=== PATIENT | female | born 1960 | race Caucasian/White ===

== ENCOUNTER 2017-01-29 13:42 | Emergency (ER) | payer OTHER ==
--- NOTE | 2017-01-29 14:06 | CPEKG ---
Heart Rate: 85 RR Interval: 706 P-R Interval: 144 QRSD Interval: 80 QT Interval: 380 QTC Interval: 452 P Herndon: 44 QRS Herndon: 36 T Wave Herndon: 33 EKG Severity - NORMAL ECG - EKG Impression: SINUS RHYTHM Electronically Signed By: Santiago Jacob 29-Jan-2017 15:12:03
[2017-01-29 14:26] VITALS: TEMP 99.5
[2017-01-29 14:27] LABS: % IMMATURE GRANULYOCYTES 0.1 % (0.0-1.1); ABSOLUTE IMMATURE GRANULOCYTES 0.01 10^3/uL (0.00-0.10); ADD DIFF? NO; ADD MORPH? YES; ADD SCAN? NO; ATYPICAL LYMPHOCYTE FLAG 20 (0-99); FRAGMENT RBC FLAG 20 (0-99); HEMATOCRIT 29.5 % (38.0-47.0); LEFT SHIFT FLG 0 (0-99); LIPEMIA HEMOLYSIS FLAG 80 (0-99); MEAN CELL HEMOGLOBIN 20.7 pg (27.9-34.1); MEAN CELL HEMOGLOBIN CONCENTR. 30.5 g/dL (32.4-36.7); MEAN PLATELET VOLUME 9.3 fL (8.7-11.7); PLATELET CLUMPS FLAG 0 (0-99); PLATELET COUNT 367 10^3/uL (150-400); RED BLOOD CELL COUNT 4.34 10^6/uL (4.18-5.33); RED CELL DISTRIBUTION WIDTH 17.2 % (11.5-15.2)
[2017-01-29] MEDS ORDERED: HYOSCYAMINE SULFATE 0.125 MG TAB PO ONE (14:43)
[2017-01-29] MEDS ORDERED: LIDOCAINE 2% VISCOUS 15 ML UDCUP PO ONE (14:43)
[2017-01-29] MEDS ORDERED: MAG HYDROX/AL HYDROX/SIMETH 30 ML UDCUP PO ONE (14:44)
[2017-01-29 14:58] LABS: ALANINE AMINOTRANSFERASE 25 IU/L (9-52); ALBUMIN 4.3 g/dL (3.5-5.0); ALKALINE PHOSPHATASE 53 IU/L (38-126); ANION GAP 14 mEq/L (8-16); ASPARTATE AMINOTRANSFERASE 21 IU/L (14-46); BILIRUBIN,TOTAL 0.5 mg/dL (0.1-1.4); CALCIUM 9.1 mg/dL (8.5-10.4); CARBON DIOXIDE 22 mEq/l (22-31); CHLORIDE 99 mEq/L (97-110); CREATININE 0.6 mg/dL (0.6-1.0); GLOMERULAR FILTRATION RATE > 60; GLUCOSE 100 mg/dL (70-100); POTASSIUM 3.8 mEq/L (3.5-5.2); SODIUM 135 mEq/L (134-144); TOTAL PROTEIN 7.9 g/dL (6.3-8.2)
[2017-01-29 15:03] LABS: TROPONIN I < 0.012 ng/mL (0-0.034)
--- NOTE | 2017-01-29 15:32 | UCPHY ---
H & P Patient Type: New Chief Complaint Nursing Narrative: CHEST PAIN STARTED 6 MONTHS AGO, INCREASED LAST 2 WEEKS, MIDSTERNAL INTERMITTENT CP, NONRADIATING. TODAY STARTED AT 430AM. Time Seen by Provider: 01/29/17 14:27 HPI/ROS: This patient reports chest pain in the lower substernal region that has been fairly constant over the last couple days. She has had intermittent symptoms in recent months prior to this and she also some epigastric discomfort. She describes epigastric discomfort as burning in nature and achy at times. She notes no clear exacerbating or alleviating factors. She has no other significant associated symptoms except mild fatigue. She spoke with her primary care physician regarding these symptoms recommended that she come in to our clinic for further evaluation given the chest pain. ROS: She reports no fevers or chills. No other constitutional symptoms besides the fatigue mentioned in HPI. HEENT: No nasal congestion or headache. Pulmonary: No dyspnea or cough. Cardiovascular: She denies any heart palpitations. No lower extremity swelling. GI: No lower belly pain. She does have the epigastric pain mentioned in the HPI. : No symptoms. Integumentary: No skin rash. 10 point ROS is otherwise negative. Source: Patient Exam Limitations: No limitations - Personal History LMP (Females 10-55): 1-7 Days Ago - Medical/Surgical History Other PMH: C/S, KNEE SURG, BREAST SURG - Family History Significant Family History: No pertinent family hx - Social History Smoking Status: Never smoked Alcohol Use: Heavy (The patient admits drinking 4 beers a day) Drug Use: None Additional Social History: She is accompanied by her has been today who appears supportive. - Physical Exam Exam: General Appearance: Alert, no distress. Eyes: Pupils equal and round no pallor or injection. ENT, Mouth: Mucous membranes moist. Respiratory: There are no retractions, lungs are clear to auscultation. Cardiovascular: Regular rate and rhythm. No murmur gallop or rub. No peripheral edema. No calf swelling or tenderness. No JVD. No chest wall tenderness. Gastrointestinal: Normoactive, soft, mild epigastric tenderness with no guarding or rebound. Rectal exam: Brown stool guaiac negative. No external hemorrhoids. Neurological: Alert with no focal deficits. Skin: Warm and dry, no rashes. Musculoskeletal: Neck is supple nontender. Extremities are symmetrical, full range of motion. Psychiatric: Mood and affect normal DIFFERENTIAL DIAGNOSIS: After history and physical exam differential diagnosis was considered for gastritis, esophageal spasm, coronary syndrome, pneumonia, pneumothorax Constitutional: Initial Vital Signs Temperature (C) 37.5 C 01/29/17 14:00 Heart Rate 89 01/29/17 14:00 Respiratory Rate 18 01/29/17 14:00 Blood Pressure 145/88 H 01/29/17 14:00 O2 Sat (%) 99 01/29/17 14:00 O2 Delivery Mode Room Air Allergies/Adverse Reactions: codeine Allergy (Verified 01/29/17 13:58) Penicillins Allergy (Verified 01/29/17 13:58) Home Medications: Medication Instructions Recorded Pantoprazole Sodium [Protonix 40mg 40 mg PO DAILY #30 tab 01/29/17 (*)] chlordiazePOXIDE [Librium] 10 - 20 mg PO TID PRN #30 cap 01/29/17 Medical Decision Making - Diagnostics EKG Interpretation: 12 lead EKG: Performed shortly after arrival Normal sinus rhythm Intervals: Normal [place]: Normal Overall assessment: Normal EKG please refer to trace master for complete read. Imaging Results: Chest x-ray: Normal by my interpretation ED Course/Re-evaluation: Given patient's history of regular alcohol use a normal EKG, I suspect the patient has GI cause of pain. She is treated with a GI cocktail with complete resolution of her symptoms. She reports "(She) feels better than (she) has in months." Review of her remaining labs reveals normal troponin, normal electrolytes, macrocytic anemia consistent with regular alcohol use. I counseled her regarding my concern with the amount that she is drinking. She was somewhat sheepish about admitting this to her and recognizes that she this abusing alcohol. I suspect that her gastritis is attributable to the regular alcohol use. After today's workup, no evidence for coronary syndrome, pneumonia, pneumothorax or PE. We discussed a plan to stop drinking with considered options to assist with this including therapy, rehab etc. Patient prefers to have a trial with Librium off of alcohol and follow up with primary care physician. - Data Points Laboratory Results: Laboratory Results 01/29/17 14:13 01/29/17 14:13 Medications Given: Discontinued Medications Al Hydroxide/Mg Hydroxide (Maalox Susp) 30 ml PO EDNOW ONE Stop: 01/29/17 14:45 Last Admin: 01/29/17 15:05 Dose: 30 ml Hyoscyamine Sulfate (Levsin, Hyomax-Sl) 0.125 mg PO EDNOW ONE Stop: 01/29/17 14:44 Last Admin: 01/29/17 14:57 Dose: 0.125 mg Lidocaine (Lidocaine 2% Viscous) 30 ml PO EDNOW ONE Stop: 01/29/17 14:44 Last Admin: 01/29/17 15:05 Dose: 30 ml Departure - Departure Disposition: Home, Routine, Self-Care Clinical Impression: Macrocytic anemia, Esophageal spasm Alcoholic gastritis Qualifiers: Chronicity: acute Gastritis bleeding: without bleeding Qualified Code(s): K29.20 - Alcoholic gastritis without bleeding Condition: Good Instructions: Gastritis (ED), Anemia (ED), Alcohol Dependence (ED) Additional Instructions: Diagnosis: Alcohol gastritis 2. Macrocytic anemia 3. Esophageal spasm Plan: Protonix acid cheryl Maalox for symptoms as needed Stop drinking alcohol Librium if needed off alcohol Iron supplement, folate and vitamin D supplements. Take a stool softener if the iron causes any constipation. Gave herself a week or so before starting iron supplement as that may bother your stomach initially. Follow up with primary care physician sometime within the next week or so Go to the emergency department for any significant worsening despite the treatment plan Referrals: Reena Alvarado MD [Primary Care Provider] - As per Instructions Prescriptions: chlordiazePOXIDE [Librium] 10 - 20 mg PO TID PRN #30 cap PRN Reason: etoh withdrawal Pantoprazole Sodium [Protonix 40mg (*)] 40 mg PO DAILY #30 tab - PQRS PQRS Measurement: NA
[2017-01-29 15:33] LABS: PLATELET ESTIMATE ADEQUATE (ADEQ)
[2017-01-29 15:34] LABS: HYPOCHROMIA 2+; MACROCYTES 1+; MICROCYTES 1+; POLYCHROMASIA 1+; STOMATOCYTES 1+
[2017-01-29 15:56] VITALS: BP 120/78; PULSE 63; RESP 16; O2SAT 100
== END 2017-01-29 15:50 | disposition home or self-care (01) ==
LOC: CED 13:42
DX: K29.20 Alcoholic gastritis without bleeding (principal); D53.9 Nutritional anemia, unspecified; K22.4 Dyskinesia of esophagus
CPT/HCPCS: 71020-PO; 80053-PO; 84484-PO; 85025-PO; 93010-PO; 99205-PO; G0463-PO

== ENCOUNTER → 2017-04-03 | Outpatient (CLI) | payer OTHER ==
[~2017-04-03] MED LIST: IOPAMIDOL (ISOVUE-300) 100 ML BTL ONE
== END ==
LOC: CIMAGING 10:13
PROVIDERS: ATTEND Internal Medicine Gastroenterology
DX: K22.9 Disease of esophagus, unspecified (principal); R10.13 Epigastric pain; K21.9 Gastro-esophageal reflux disease without esophagitis; J98.11 Atelectasis
CPT/HCPCS: 71260-PO; Q9967

== ENCOUNTER 2017-04-11 14:13 | Day surgery (SDC) | payer OTHER ==
[2017-04-11] MEDS ORDERED: LIDOCAINE 1% 2 ML INJ ID PRN (14:30)
[2017-04-11] MEDS ORDERED: LR 1,000 ML IV ONE (14:30)
[2017-04-11] MEDS ORDERED: LIDOCAINE 1% 2 ML INJ ONE (14:32)
[2017-04-11 14:44] VITALS: PULSE 70
[2017-04-11] MEDS ORDERED: MIDAZOLAM 2 MG/2 ML VIAL ONE (15:01)
[2017-04-11] MEDS ORDERED: LIDOCAINE 2% 5 ML SDV ONE (15:01)
[2017-04-11] MEDS ORDERED: PROPOFOL/EMULSION 500 MG/50 ML BOTTLE IV ONE (15:02)
--- NOTE | 2017-04-11 15:08 | PDANEPAE ---
ANE Past Medical History - Cardiovascular History Hx Hypertension: No Hx Arrhythmias: No Hx Chest Pain: No Hx Coronary Artery / Peripheral Vascular Disease: No Hx CHF / Valvular Disease: No Hx Palpitations: No - Pulmonary History Hx COPD: No Hx Asthma/Reactive Airway Disease: No Hx Recent Upper Respiratory Infection: No Hx Oxygen in Use at Home: No Hx Sleep Apnea: No Sleep Apnea Screening Result - Last Documented: Negative - Neurologic History Hx Cerebrovascular Accident: No Hx Seizures: No Hx Dementia: No - Endocrine History Hx Diabetes: No - Renal History Hx Renal Disorders: No - Liver History Hx Hepatic Disorders: No - Neurological & Psychiatric Hx Hx Neurological and Psychiatric Disorders: No - Cancer History Hx Cancer: No - Congenital Disorder History Hx Congenital Disorders: No - GI History Hx Gastrointestinal Disorders: Yes Gastrointestinal History Comment: ESOPHAGEAL PAIN - Other Health History Other Health History: NEG - Chronic Pain History Chronic Pain: No - Surgical History Prior Surgeries: KNEE R. BREAST L. C SECTIONS. YOHAN ANE Review of Systems - Exercise capacity METS (RN): 5 METS ANE Patient History - Allergies Allergies/Adverse Reactions: codeine Allergy (Verified 01/29/17 13:58) Penicillins Allergy (Verified 01/29/17 13:58) - NPO status NPO Since - Liquids (Date): 04/10/17 NPO Since - Liquids (Time): 23:00 NPO Since - Solids (Date): 04/10/17 NPO Since - Solids (Time): 22:00 - Smoking Hx Smoking Status: Never smoked - Family Anes Hx Family Hx Anesthesia Complications: NEG ANE Labs/Vital Signs - Vital Signs Blood Pressure: 114/75 Heart Rate: 70 Respiratory Rate: 14 O2 Sat (%): 98 Height: 162.56 cm Weight: 56.699 kg ANE Physical Exam - Airway Mallampati Score: Class 1 Mouth exam: normal dental/mouth exam - Pulmonary Pulmonary: no respiratory distress, no rales or rhonchi, clear to auscultation - Cardiovascular Cardiovascular: regular rate and rhythym, no murmur, rub, or gallop, pulses symmetric bilaterally - ASA Status ASA Status: I ANE Anesthesia Plan Anesthesia Plan: GA with mask
--- NOTE | 2017-04-11 15:29 | PDGENHP ---
History & Physical Chief Complaint: submucosal esophageal lesion History of Present Illness: Hx of esophageal submucosal lesion Relevant Physical Exam: GEN: NAD. Cardiac: RRR. Lungs: CTA B. Abd: Soft, nt, nd
[2017-04-11] MEDS ORDERED: PROPOFOL 200 MG/20 ML VIAL ONE ×4 (15:45→16:19)
[2017-04-11] MEDS ORDERED: METOCLOPRAMIDE 10 MG/2 ML VIAL IVP PRN (16:28)
[2017-04-11] MEDS ORDERED: PROMETHAZINE HCL 25 MG/ML INJ IVP PRN (16:28)
[2017-04-11] MEDS ORDERED: ONDANSETRON 4 MG/2 ML VIAL IVP PRN (16:28)
[2017-04-11] MEDS ORDERED: LR 500 ML IV PRN (16:28)
[2017-04-11] MEDS ORDERED: DEXAMETHASONE 4 MG/ML VIAL IVP PRN (16:28)
[2017-04-11] MEDS ORDERED: NALOXONE HCL 0.4 MG/ML INJ IVP PRN (16:28)
--- NOTE | 2017-04-11 16:30 | POSTOPPROG ---
Post Op Note Date of Operation: 04/11/17 Surgeon: Alec Renner Pre-op Diagnosis: Submucosal esophageal lesion Post-op Diagnosis: Same Procedure: EUS w/ FNA Findings: 2cm submucosal esophageal lesion Inf/Abcess present in the surg proc area at time of surgery?: No
--- NOTE | 2017-04-11 16:35 | POSTANESTH ---
Post Anesthetic Evaluation Cardiovascular Status: Normal, Stable Respiratory Status: Normal, Stable Level of Consciousness/Mental Status: Moderately Sleepy Pain Control: Adequate, Prn Tx Ordered Nausea/Vomiting Control: Adequate, Prn Tx Ordered Complications Possibly Related to Anesthesia: None Noted
[2017-04-11] MEDS ORDERED: ONDANSETRON 4 MG/2 ML VIAL ONE (16:41)
[2017-04-11] MEDS ORDERED: ACETAMINOPHEN 160 MG/5 ML UDCUP ONE (17:58)
[2017-04-11 18:12] VITALS: BP 119/77; RESP 18; TEMP 97.9; O2SAT 97
--- NOTE | 2017-04-12 03:47 | GPN ---
[f rep st] PROCEDURE NOTE DATE OF PROCEDURE: 04/11/2017 PREPROCEDURE DIAGNOSIS: Submucosal lesion in the mid esophagus. POSTPROCEDURE DIAGNOSIS: Submucosal lesion in the mid esophagus. PROCEDURE: Endoscopic ultrasound, fine-needle aspiration. ANESTHESIA: Monitored anesthesia care. INDICATIONS: The patient is a 56-year-old female who initially had abdominal pain, resulting in an endoscopy being performed, which showed a submucosal lesion in the mid thoracic esophagus. Subseque nt CT scan showed midesophageal lesion, measuring 2.1 cm x 2 cm, suspicious for leiomyoma. She is h ere today for endoscopic ultrasound and fine-needle aspiration of the midesophageal submucosal lesio n. The risks and benefits of the procedure were discussed with the patient. Consent obtained. The risks include, but are not limited to, bleeding, perforation, and sedation. The patient is ASA Cla ss 1. DESCRIPTION OF PROCEDURE: The end-viewing endoscope was inserted into the esophagus, into the stoma ch, and to the second portion of the duodenum. The esophagus shows a submucosal lesion encompassing 1/3rd of the esophagus, located between 25 and 27 cm from the incisors. The GE junction was regula r. The stomach appears normal. The duodenum and second portion were normal. The scope was then re moved and the curvilinear echoendoscope was inserted into the esophagus, into the stomach, and the s econd portion of the duodenum. The esophagus, stomach, and second portion of the duodenum were eval uated using endoscopic ultrasound. The pancreatic head, as visualized from the duodenum, shows stra nding and hyperechogenic foci without shadowing. The pancreatic body and tail have a similar appear ance. These are nonspecific findings. The extrahepatic bile duct appears normal. The celiac axis appears normal. In the esophagus, the submucosal lesion was visualized and measures 2.1 cm x 2 cm i n maximal diameter. The lesion is well circumscribed. The lesion appears to be confined within the submucosa and does not obviously arise from the esophageal muscle wall. Next, a 25-gauge Slimline FNA needle was inserted into the lesion. No tissue was retrieved. Subsequently, biopsied the lesio n 5 times using a 25-gauge Acquire FNA needle. The initial biopsy using the Acquire needle was done with slow removal of the stylet. Again, no tissue was obtained. The remaining biopsies were taken using the Acquire needle with suction. This resulted in adequate tissue. IMPRESSION: 1. Submucosal lesion in the midthoracic esophagus status post fine needle aspiration. 2. Nonspecific findings in the pancreas including stranding and hyperechoic foci without shadowing. RECOMMENDATIONS: 1. Followup the final biopsy results. 2. Results available within 10 days. 3. Discharge home with escort. 4. Advance diet as tolerated. Thank you for allowing me to participate in the care of your patient. Please do not hesitate to anna conner with questions. /[id number]/MODL
== END 2017-04-11 18:14 | disposition home or self-care (01) ==
LOC: FSGY 14:13
PROVIDERS: ATTEND Internal Medicine Gastroenterology
PROC: 0D9 Gastrointestinal System, Drainage (ICD-10-PCS; principal; 2017-04-11 15:30)
DX: K22.8 Other specified diseases of esophagus (principal)
CPT/HCPCS: J2250; J2405; J2704